=== PATIENT | female | born 1945 | race Caucasian/White ===

== ENCOUNTER 2017-03-23 21:54 | Emergency (ER) | payer OTHER, MEDICARE ==
[~2017-03-23] VITALS: Ht 162.6 cm; Wt 64.4 kg
[~2017-03-23 21:54] MED LIST: ADVAIR HFA115 MCG/21 INH; APAP500 PO; HERCEPTIN KIT440 M1 IV; HYDROCODONE-AP1 EAC6 PO; LIPITOR 10 MG10 M1 PO; MACROBID 100 M100 M2 PO; MUCINEX TA600 MG/TA1 PO; MUCUS DM 600-31 EACH PO; NORCO 5-325 TA1 EACH PO; NORFLEX100 MG PO; OMEPRAZOLE40 MG PO; PRILOSEC40 MG PO; PROMETH-CODEIN 65 ML PO; SALINE NASAL SP30 ML NS; TESSALON PERLE100 MG PO; TYLENOL325 MG PO; VITAMIN D 5050000 I1 PO; ZOFRAN4 MG PO; ZPAK PO; [UNRECOGNIZED DRUG - REMARK]
[2017-03-24] MEDS ORDERED: NORCO 5-325 TA1 EACH PO (00:31)
== END 2017-03-24 01:06 | disposition home or self-care (01) ==
LOC: ER 21:54
DX: S61.012A Laceration without foreign body of left thumb without damage to nail, initial encounter (principal); S80.01XA Contusion of right knee, initial encounter; Z85.3 Personal history of malignant neoplasm of breast; E78.5 Hyperlipidemia, unspecified; K21.9 Gastro-esophageal reflux disease without esophagitis; Z90.49 Acquired absence of other specified parts of digestive tract; Z88.1 Allergy status to other antibiotic agents; Z88.0 Allergy status to penicillin; W22.8XXA Striking against or struck by other objects, initial encounter; Y93.89 Activity, other specified; Y92.89 Other specified places as the place of occurrence of the external cause; Y99.9 Unspecified external cause status